=== PATIENT | female | born 1975 | race Caucasian/White ===

== ENCOUNTER 2021-05-12 19:40 | Emergency (ER) | payer SELFPAY ==
--- NOTE | 2021-05-12 19:44 | ED.BACK ---
HPI - Back Pain/Injury General Chief Complaint: Back Pain/Injury Stated Complaint: Back Pain Time Seen by Provider: 05/12/21 19:44 Source: patient and RN notes reviewed History of Present Illness HPI Narrative: Patient is a 46-year-old female who presents the urgent care with complaints of low back pain, urinary frequency, urgency, dysuria. Patient states that back pain started this morning and she is taken ibuprofen. Urinary symptoms started a few days ago. Patient does have a history of kidney stones as well as UTIs. Has not been diagnosed with a UTI in the last 3 years. Denies of any known back injury. Denies of any recent heavy pushing, pulling, lifting above the head. Denies any blood in the urine. Denies of fever, chills, nausea, vomiting. No other acute complaints. No acute distress noted. Patient read the plan of care. Some parts of this dictation were generated by voice recognition software and may contain typographical and/or grammatical inaccuracies. Related Data Allergies Allergy/AdvReac Type Severity Reaction Status Date / Time Penicillins Allergy Anaphylaxis Verified 05/12/21 19:50 Review of Systems Review of Systems: CONSTITUTIONAL: Denies fever, chills, or sweats. EYES: Denies visual changes, redness, or discharge. ENT: Denies rhinorrhea, congestion, sore throat, or otalgia. CARDIOVASCULAR: Denies chest pain, palpitations, or edema. RESPIRATORY: Denies cough or dyspnea. GASTROINTESTINAL: Denies abdominal pain, nausea, vomiting, or diarrhea. GENITOURINARY: Reports of urgency, frequency and dysuria SKIN: Denies rash or itching. MUSCULOSKELETAL: Reports of low back pain NEUROLOGIC: Denies headache, numbness, or weakness. All other systems reviewed are negative, except as documented in HPI. PMFSH Comments At the time of my signature, I reviewed and agree with the nursing past medical, surgical, social, and family history. There is no relevant family history pertinent to the patient complaint. Exam Narrative: GENERAL: This is a well-nourished, well-developed patient, in no apparent distress. HEAD: normocephalic, atraumatic. EYES: PERRL. Sclera clear/white. Vision is grossly intact. EARS: External ears normal NOSE: External nose normal with no obvious nasal discharge, nares without redness, no rhinorrhea. THROAT: Mucous membranes moist NECK: Neck supple CARDIOVASCULAR: Regular rate and rhythm without murmurs, gallops, or rubs. RESPIRATORY: Clear to auscultation. Breath sounds equal bilaterally. No wheezes, rales, or rhonchi. GASTROINTESTINAL: Abdomen soft, non-tender, nondistended. SKIN: warm, intact with no suspicious lesions or rash, good texture and turgor. NEURO: awake, alert, and oriented to person, place and time. There were no obvious focal neurologic abnormalities. EXTREMITIES: No clubbing, cyanosis, or edema. BACK: Bilateral CVA tenderness; diffuse lumbar tenderness. Bilateral positive SLE exam. Course Course Level of Care: Express Care Visit Vital Signs Vital signs: Vital Signs Temperature 96.4 F L 05/12/21 19:46 Pulse Rate 96 05/12/21 19:46 Respiratory Rate 18 05/12/21 19:46 Blood Pressure 115/78 05/12/21 19:46 Pulse Oximetry 99 05/12/21 19:46 Temperature 96.4 F L 05/12/21 19:50 Pulse Rate 96 05/12/21 19:50 Respiratory Rate 18 05/12/21 19:50 Blood Pressure 115/78 05/12/21 19:50 Pulse Oximetry 99 05/12/21 19:50 Reviewed MDM - Back Pain/Injury MDM Narrative Medical decision making narrative: Reviewed lab results with the patient. She is aware that urine analysis is not indicative of urinary tract infection. Considering your symptoms and your history of kidney stones, it is highly likely that kidney stones could be the culprit of your pain. Advised the patient to avoid any heavy lifting/pushing/pulling. May continue Tylenol as needed. Do not take ibuprofen in conjunction with the prescription Toradol. Increase your water intake and avoid sugary and
[2021-05-12 19:46] VITALS: BP 115/78; PULSE 96; RESP 18; TEMP 35.8; O2SAT 99
[2021-05-12 19:50] VITALS: BP 115/78; PULSE 96; RESP 18; TEMP 35.8; O2SAT 99
== END 2021-05-12 20:00 | disposition home or self-care (01) ==
PROVIDERS: Emergency Provider Nurse Practitioner Family
DX: R30.0 Dysuria (principal); Z87.442 Personal history of urinary calculi
CPT/HCPCS: 81003; 99213; G0463

== ENCOUNTER 2022-02-11 16:46 | Emergency (ER) | payer OTHER, SELFPAY ==
[2022-02-11 16:52] VITALS: BP 187/97; PULSE 117; RESP 16; TEMP 37.1; O2SAT 97
== END 2022-02-11 17:10 | disposition left against medical advice (07) ==
LOC: EXPBETH 16:51
PROVIDERS: Emergency Provider Nurse Practitioner
DX: Z53.21 Procedure and treatment not carried out due to patient leaving prior to being seen by health care provider (principal)
CPT/HCPCS: 99199

== ENCOUNTER 2022-08-01 17:11 | Emergency (ER) | payer OTHER, SELFPAY ==
[2022-08-01 17:18] VITALS: BP 125/68; PULSE 97; RESP 16; TEMP 36.8; O2SAT 100
--- NOTE | 2022-08-01 17:52 | ED.FEMALEGU ---
HPI - Female Genitourinary General Chief complaint: Urogenital-Female Stated complaint: bladder infection Time Seen by Provider: 08/01/22 17:52 Source: patient, RN notes reviewed and old records reviewed Mode of arrival: ambulatory Limitations: no limitations History of Present Illness HPI Narrative: 47-year-old female who presents to [facility] with complaints 2 day history burning frequency with urination reports some urgency, also some decreased output. Patient denies any back or any CVA tenderness. She reports no concerns for STD exposure denies any vaginal discharge drainage or itching. Patient denies any fevers, denies nausea, vomiting, or diarrhea Patient reports no CVA tenderness or any back pain like when she has had previous kidney stones. MD elicited complaint: dysuria, UTI and other (urgency and frequency) Pertinent past history: other (previous UTI and kidney stones) Onset (ago): day(s) (2) Severity scale (1-10): 4 Quality of pain: burning Vaginal discharge: none Related Data Allergies Allergy/AdvReac Type Severity Reaction Status Date / Time Penicillins Allergy Anaphylaxis Verified 02/11/22 17:24 Review of Systems Review of Systems: CONSTITUTIONAL: Denies fever, chills, or sweats. CARDIOVASCULAR: Denies chest pain, palpitations, or edema. RESPIRATORY: Denies cough or dyspnea. GASTROINTESTINAL: Denies abdominal pain, nausea, vomiting, or diarrhea. GENITOURINARY: Reports dysuria, frequency, urgency. Denies flank pain or hematuria, perineal discomfort burning with urination SKIN: Denies rash or itching. MUSCULOSKELETAL: Denies back pain or myalgia. Denies CVA tenderness NEUROLOGIC: Denies headache All systems reviewed & are unremarkable except as noted in HPI and below PMFSH Past Medical History Medical History (Updated 08/01/22 @ 18:00 by Tierra Faustin NP) Kidney stones Surgical History Surgical History (Updated 08/01/22 @ 17:59 by Tierra Faustin NP) History of tubal ligation Social History Social History (Updated 08/01/22 @ 18:11 by Tierra Faustin NP) Smoking packs per day: 0.5 Smoking cigarettes per day: 10.0 Smoking status: Current every day smoker Tobacco type: cigarettes Alcohol intake: never Substance use type: does not use Living arrangements: with family Gender identity (if verbalized by the patient): Female Comments At time of signature, agree with nursing past medical, surgical, social and family history. There is no relevant family history pertinent to the presenting complaint Exam Narrative: GENERAL: Well-appearing, well-nourished, and in no acute distress. HEAD: Normocephalic, atraumatic. NECK: Supple. no lymphadenopathy CHEST: Clear to auscultation. No respiratory distress.SAO2 100% on room air HEART: Regular rate and rhythm. No murmur heard. Normal peripheral pulses. ABDOMEN: Soft, nontender, nondistended, normal active bowel sounds,perineal pressure with burning urgency and frequency. No CVA tenderness EXTREMITIES: Normal range of motion. No edema. SKIN: Warm, dry, no rash. NEURO: No focal deficits. Alert and oriented x3. Course Course Emergency Course: Patient is aware of diagnosis, understands and agrees to treatment plan.? Anticipatory guidance given.? Patient agrees to follow-up as directed and is aware of reasons to seek care at the emergency department. Portions of this record may have been created with voice recognition software Level of Care: Express Care Visit Vital Signs Vital signs: Vital Signs Temperature 36.8 C 08/01/22 17:18 Pulse Rate 97 08/01/22 17:18 Respiratory Rate 16 08/01/22 17:18 Blood Pressure 125/68 08/01/22 17:18 Pulse Oximetry 100 08/01/22 17:18 Oxygen Delivery Room Air 08/01/22 17:18 Temperature 36.8 C 08/01/22 17:18 Pulse Rate 97 08/01/22 17:18 Respiratory Rate 16 08/01/22 17:18 Blood Pressure 125/68 08/01/22 17:18 Pulse Oximetry 100 08/01/22 17:18 Oxygen
== END 2022-08-01 18:07 | disposition home or self-care (01) ==
PROVIDERS: Emergency Provider Registered Nurse; PCP Nurse Practitioner Adult Health
DX: N39.0 Urinary tract infection, site not specified (principal); F17.210 Nicotine dependence, cigarettes, uncomplicated
CPT/HCPCS: 81003; 87086; 99213; G0463

== ENCOUNTER 2023-01-24 13:07 | Emergency (ER) | payer OTHER, SELFPAY ==
[2023-01-24 13:12] VITALS: BP 122/78; PULSE 103; RESP 16; TEMP 36.8; O2SAT 98
--- NOTE | 2023-01-24 13:20 | ED.URI ---
HPI - URI/Sore Throat General Chief Complaint: Upper Respiratory Infection Stated Complaint: chest congestion,cough Source: patient and RN notes reviewed History of Present Illness HPI Narrative: 47 yo F presents to urgent care with complaints of cough since yesterday. Pt also presents with a hoarse voice as well. Denies any fevers, chills, chest pain, SOB, sore throat, ear pain, congestion, N/V/D. Pt states her grandbabies have had croup for weeks now and are now on steroids. Related Data Home Medications Medication Instructions Recorded Confirmed cyanocobalamin (vitamin B-12) 500 500 mcg PO DIRECTED 01/24/23 01/24/23 mcg tablet (Vitamin B-12) Allergies Allergy/AdvReac Type Severity Reaction Status Date / Time Penicillins Allergy Anaphylaxis Verified 01/24/23 13:22 Review of Systems Review of Systems: CONSTITUTIONAL: Denies fever, chills, or sweats. EYES: Denies visual changes, redness, or discharge. ENT: hoarse voice CARDIOVASCULAR: Denies chest pain, palpitations, or edema. RESPIRATORY: cough GASTROINTESTINAL: Denies abdominal pain, nausea, vomiting, or diarrhea. GENITOURINARY: Denies dysuria or hematuria. SKIN: Denies rash or itching. MUSCULOSKELETAL: Denies back pain, joint pain, or myalgia. NEUROLOGIC: Denies headache, numbness, or weakness. Pertinent positives per HPI. [facility] Past Medical History Medical History (Updated 01/24/23 @ 13:29 by Renate Wilkes APRN) Kidney stones Surgical History Surgical History (Updated 08/01/22 @ 17:59 by Tierra Faustin NP) History of tubal ligation Social History Social History (Updated 08/01/22 @ 18:11 by Tierra Faustin NP) Smoking packs per day: 0.5 Smoking cigarettes per day: 10.0 Smoking status: Current every day smoker Tobacco type: cigarettes Alcohol intake: never Substance use type: does not use Living arrangements: with family Gender identity (if verbalized by the patient): Female Comments At the time of my signature, I reviewed and agree with the nursing past medical, surgical, social, and family history. There is no relevant family history pertinent to the patient complaint. Exam Narrative: GENERAL: This is a well-nourished, well-developed patient, in no apparent distress. HEAD: normocephalic, atraumatic. EYES: Sclera clear/white. Vision is grossly intact. EARS: External ears normal, auditory canals clear and without drainage, TMs normal without perforation. Hearing grossly intact. NOSE: External nose normal with no obvious nasal discharge, nares without redness, no rhinorrhea. THROAT: Mucous membranes moist, posterior pharynx clear. Hoarse voice. NECK: Neck supple, non-tender without lymphadenopathy, masses or thyromegaly. CARDIOVASCULAR: Regular rate and rhythm without murmurs, gallops, or rubs. RESPIRATORY: Clear to auscultation. Breath sounds equal bilaterally. No wheezes, rales, or rhonchi. GASTROINTESTINAL: Abdomen soft, non-tender, nondistended. Bowel sounds are active. No hepato-splenomegaly, or palpable masses. No guarding. SKIN: warm, intact with no suspicious lesions or rash, good texture and turgor. NEURO: awake, alert, and oriented to person, place and time. There were no obvious focal neurologic abnormalities. EXTREMITIES: No clubbing, cyanosis, or edema. No joint tenderness, effusion, or edema noted. BACK: Nontender without deformity or crepitus. No flank tenderness. Course Course Level of Care: Express Care Visit Vital Signs Vital signs: Vital Signs Temperature 98.2 F 01/24/23 13:12 Pulse Rate 103 H 01/24/23 13:12 Respiratory Rate 16 01/24/23 13:12 Blood Pressure 122/78 01/24/23 13:12 Pulse Oximetry 98 01/24/23 13:12 Oxygen Delivery Room Air 01/24/23 13:12 Temperature 98.2 F 01/24/23 13:12 Pulse Rate 103 H 01/24/23 13:12 Respiratory Rate 16 01/24/23 13:12 Blood Pressure 122/78 01/24/23 13:12 Pulse Oximetry 98 01/24/23 13:12 Oxygen Delivery
== END 2023-01-24 13:30 | disposition home or self-care (01) ==
PROVIDERS: Emergency Provider Nurse Practitioner Family; PCP Nurse Practitioner Adult Health
DX: B34.9 Viral infection, unspecified (principal); J04.0 Acute laryngitis; F17.210 Nicotine dependence, cigarettes, uncomplicated
CPT/HCPCS: 99211; G0463

== ENCOUNTER 2023-03-11 14:08 | Emergency (ER) | payer OTHER, MEDICAID, SELFPAY ==
[2023-03-11 14:25] VITALS: BP 113/80; PULSE 138; RESP 16; TEMP 36.3; O2SAT 99
--- NOTE | 2023-03-11 14:30 | ED.FEMALEGU ---
HPI - Female Genitourinary General Chief complaint: Urogenital-Female Stated complaint: Possible UTI Time Seen by Provider: 03/11/23 14:30 Source: patient Mode of arrival: ambulatory Limitations: no limitations History of Present Illness HPI Narrative: 47-year-old female presented for complaint of urinary frequency, decreased urinary output, and dark colored urine over the past 3 days. Also reports pain to both sides of abdomen. She endorses a history of renal stones, but states pain is not similar. Denies nausea, vomiting, diarrhea, fevers or chills. No meds for symptoms. Related Data Home Medications Medication Instructions Recorded Confirmed cyanocobalamin (vitamin B-12) 500 500 mcg PO DIRECTED 01/24/23 01/24/23 mcg tablet (Vitamin B-12) Allergies Allergy/AdvReac Type Severity Reaction Status Date / Time Penicillins Allergy Anaphylaxis Verified 01/24/23 13:22 Review of Systems Review of Systems: CONSTITUTIONAL: Denies body aches, fever, chills, or sweats. EYES: Denies visual changes, redness, or discharge. ENT: Denies rhinorrhea, congestion, sore throat, or otalgia. CARDIOVASCULAR: Denies chest pain, palpitations, or edema. RESPIRATORY: Denies cough or dyspnea. GASTROINTESTINAL: Denies abdominal pain, nausea, vomiting, or diarrhea. GENITOURINARY: Denies dysuria or hematuria.Reports frequency and dark urine SKIN: Denies rash, itching, or wounds. MUSCULOSKELETAL: reports low back pain, Denies joint pain, or myalgia. NEUROLOGIC: Denies headache, numbness, tingling, or weakness. All systems reviewed & are unremarkable except as noted in HPI and below PMFSH Past Medical History Medical History Kidney stones Surgical History Surgical History History of tubal ligation Social History Social History Smoking packs per day: 0.5 Smoking cigarettes per day: 10.0 Smoking status: Current every day smoker Tobacco type: cigarettes Alcohol intake: never Substance use type: does not use Living arrangements: with family Gender identity (if verbalized by the patient): Female Comments At time of signature, I have reviewed and agree with nursing past medical, surgical, social and family history unless otherwise noted. Please see nursing chart for further information. There is no relevant family history pertinent to the presenting complaint Exam Narrative: GENERAL: Well-appearing and in no acute distress. EYES: EOMI. No redness or drainage. Conjunctivae normal. ENT: Mucous membranes pink and moist. No rhinorrhea. TMs normal bilaterally. Throat normal. Uvula midline. NECK: Normal AROM. CHEST: No respiratory distress. Clear to auscultation. HEART: regular, tachycardic No murmur appreciated. Normal peripheral pulses. ABDOMEN: Soft, nondistended, normal active bowel sounds. Tender LUQ. No rebound tenderness, rigidity, or asymmetry. No CVA tenderness. EXTREMITIES: Normal range of motion. No edema. SKIN: Warm, dry, no rash. Capillary refill normal. Normal skin turgor. NEURO: No focal deficits. Alert and oriented x3. Gait steady. PSYCH: flat affect. Course Course Emergency Course: Patient is aware of diagnosis, understands and agrees to treatment plan. Anticipatory guidance given. Patient agrees to follow-up as directed and is aware of reasons to seek care at the emergency department. Portions of this record may have been created with voice recognition software Level of Care: Express Care Visit Vital Signs Vital signs: Vital Signs Temperature 97.4 F L 03/11/23 14:25 Pulse Rate 138 H 03/11/23 14:25 Respiratory Rate 16 03/11/23 14:25 Blood Pressure 113/80 03/11/23 14:25 Pulse Oximetry 99 03/11/23 14:25 Oxygen Delivery Room Air 03/11/23 14:25 Temperature 97.4 F L 03/11/23 14:25 Pulse
--- NOTE | 2023-03-11 14:49 | ECG_ITS ---
Measurements Intervals [place] Rate: 124 P: 64 AK: 96 QRS: 67 QRSD: 70 T: 61 QT: 318 QTc: 458 Interpretive Statements SINUS TACHYCARDIA WITH SHORT AK INTERVAL NONSPECIFIC ST & T-WAVE ABNORMALITY ABNORMAL RHYTHM ECG NO PREVIOUS ECG AVAILABLE FOR COMPARISON Electronically Signed On 03-12-2023 8:57:20 HAND BUFFING WHEEL FORMER by Leonel Grayson M.D.
== END 2023-03-11 15:18 | disposition short-term general hospital (02) ==
PROVIDERS: Emergency Provider Nurse Practitioner Family; PCP Nurse Practitioner Adult Health
DX: R00.0 Tachycardia, unspecified (principal); R82.998 Other abnormal findings in urine; F17.210 Nicotine dependence, cigarettes, uncomplicated
CPT/HCPCS: 81003; 87086; 87088; 93005; 99213; G0463

== ENCOUNTER 2024-07-20 11:52 | Emergency (ER) | payer OTHER, SELFPAY ==
--- OUTSIDE RECORDS SUMMARY | 2024-07-20 11:55 | XMS_ITS | Encounter Summary ---
Author Organization [facility] Address [address] [place] [address] Care Team Providers Care Oil Well Engineer Name Role Phone Demetrice Tom NP Primary Care Provider [phone] Reason for Visit * Auth/Cert (Routine) Specialty Diagnoses / Procedures Referred By Vinicio moncada Referred To Contact Diagnoses Family history of colon cancer Family history of colon cancer [Z80.0] Procedures CO COLONOSCOPY FLX DX W/COLLJ SPEC WHEN PFRMD COLONOSCOPY Referral ID Status Reason Start Date Expiration Date Visits Re quested Visits Authorized [id number] 1 1 Encounter Details Date Type Department Care Team (Late st Contact Info) Description 09/25/2023 Hospital Encounter [facility] [address] [place] [address] Constantine Puentes MD [address] [place] [address] [address] [place] [address] Social History Tobacco Use Types Packs/Day Years Used Date Smoking Tobacco: Heavy Smoker Cigarettes Smokeless Tobacco: Never Tobacco Cessation:Ready to Q uit: Not Asked; Counseling Given: Not Answered Comments:Smoking History Packs/day: 1 Packs Alcohol Use Standard Drinks/Week Comments No 0 (1 standard drink = 0.6 oz pur e alcohol) AUDIT-C Answer Date Recorded Q1: How often do you have a drink containing alcohol? Never 03/15/2023 Q2: How many drinks containi ng alcohol do you have on a typical day when you are drinking? Patient does not drink 12/20/202 3 Q3: How often do you have si x or more drinks on one occasion? Never 03/15/2023 PHQ-2 Answer Date Recorded PHQ-2 Total Score (If total score is 3 or more points, staff should administer the PHQ-9) 0 04/20/2023 Personal Safety Answer Date Recorded Have you ever been in or are you currently in a harmful physical or emotional relationship or is someone making you feel afraid or unsafe? 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 Gender Identity Not on file Sexual Orientation Not on file documented as of this encounter Plan of Treatment Not on file documented as of this encounter Visit Diagnoses Diagnosis Family history of colon cancer- Primary Family history of malignant neoplasm of gastrointestinal tract documented in this encounter Admitting Diagnoses Diagnosis Family history of colon cancer Family history of malignant neoplasm of gastrointestinal tract documented in this encounter Care Teams Oil Well Engineer Relationship Specialty Start Date End Date Demetrice Tom NP 2 [facility] [address] [place] [id number] PCP - General Family Medicine 03/15/23 documented as of this encounter
--- OUTSIDE RECORDS SUMMARY | 2024-07-20 11:55 | XMS_ITS | Encounter Summary ---
Author Organization [facility] Address [address] [place] [address] Phone Care Team Providers Care Harp Maker Name Role Phone Provider, None Primary Care Provider Robby Fields MD Unavailable [phone] Rajwinder Salazar APRN, CNP Primary Care Provider + Encounter Details Date Type Department Care Team (Late st Contact Info) Description 11/30/2022 Lab Requisition [facility] [address] [place] [address] Carlton Hamm, PAC [address] [place] [address] Encounter for pre-employment examination Social History Tobacco Use Types Packs/Day Years Used Date Smoking Tobacco: Never Smokeless Tobacco: Never Alcohol Use Standard Drinks/Week Comments Never 0 (1 standard drink = 0.6 oz pur e alcohol) Comments No Sex and Gender Information Value Date Recorded Sex Assigned at Not on file Legal Sex Female 7:58 PM CDT Gender Identity Not on file Sexual Orientation Not on file COVID-19 Exposure Response Date Recorded In the last 10 days, have yo u been in contact with someone who was confirmed or suspected to have Coronavirus/COVID-19? No / Unsure 11/30/2022 11:17 AM CDT documented as of this encounter Plan of Treatment Not on file documented as of this encounter Procedures Procedure Name Priority Date/Time Associated Diagnosis Comments QUANTIFERON-TB GOLD PLUS Routine 11/30/2022 10:55 AM CDT Encounter for pre-employment examination documented in this encounter Results * QUANTIFERON-TB GOLD PLUS (11/30/2022 10:55 AM CDT) NIL CONTROL 0.02 <8.01 IU/mL 12/02/2022 10:22 AM CDT [facility] TB ANTIGEN 1 0.09 <0.35 IU/mL 12/02/2022 10:22 AM CDT [facility] TB ANTIGEN 2 0.03 <0.35 IU/mL 12/02/2022 10:22 AM CDT [facility] MITOGEN CONTROL 9.98 >0.49 IU/mL 12/03/19 10:22 AM CDT [facility] INTEPRETATION TB NEGATIVE NEGATIVE, NEGATIVE (TB antigen response less than 25% of internal negative control value) 12/02/2022 10:22 AM CDT [facility] Comment:No immune response t o Mycobacterium tuberculosis antigens was noted. M. tuberculosis infection unlikely. Blood No Phlebotomy Charged / Unknown 11/30/2022 10:55 AM CDT 11/30/2022 12:31 PM CDT Narrative [facility] - 12/02/2022 10:22 AM CDT A POSITIVE QUANTIFERON-TB GOLD PLUS RESULT SHOULD NOT BE THE SOLE OR DEFINITIVE BASIS FOR DETERMINING INFECTION WITH M.TUBERCULOSIS. Diagnosing or excluding tuberculosis disease, and assessing the probability of LTBI, requires a combination of epidemiological, historical, medical and diagnostic findings (e.g., acid fast bacilli (AFB) smear and culture, chest xray) that should be taken into account when interpreting QFT-Plus results. Furthermore, the magnitude of the measured gamma interferon level cannot be correlated to stage or degree of infection, level of immune responsiveness, or likelihood for progression to active disease. The Nil control adjusts for background (e.g., elevated levels of circulating gamma interferon or presence of heterophile antibodies). The Mitogen control serves as an internal positive control and verifies each specimen tested can produce a gamma interferon response. Low mitogen may occur with insufficient lymphocytes, reduced lymphocyte activity due to improper specimen handling, filling/mixing of the mitogen tube, or inability of the patient's lymphocytes to generate gamma interferon. Infection with other Mycobacteria, including M. kansasii, M. szulgai, and M. marinum, may cause false positive results. A negative QuantiFERON-TB Gold Plus result does not preclude the possibility of M. tuberculosis infection or tuberculosis disease: false negative results can be due to incorrect blood sample collection/ improper handling of the specimen, stage of infection (e.g., specimen obtained prior to the development of cellular immune response), co-morbid conditions which affect immune function, or other individual immunological factors. The minimum number of lymphocytes required for a reliable test has not been established and may also be variable. Diagnostic testing for Mycobacterium tuberculosis using Interferon Gamma Release Assays should follow applicable published guidelines, including when testing in populations such as children, women, and HIV-infected or otherwise immunocompromised individuals. https://www.cdc.gov/tb/publications/guidelines/testing.htm us Carlton Hamm PAC IMMUNOLOGY ORDERABLES Final Result [facility] [address] [place] [address], documented in this encounter Visit Diagnoses Diagnosis Encounter for pre-employment examination Health examination of defined subpopulation documented in this encounter Additional Health Concerns Infection Onset Date Last Indicated Resolved Time Respiratory Rule Out - RPA 03/12/2023 03/12/2023 1 05/13/2022 1:56 AM CAKE FORMER COVID - 19 03/12/2023 03/12/2023 03/22/2023 12:1 8 AM CAKE FORMER COVID - 19 08/01/2023 08/01/2023 08/01/2023 10:1 3 AM CDT documented as of this encounter Care Teams Harp Maker Relationship Specialty Start Date End Date Provider, None [place] PCP - General 07/03/21 03/10/23 Rajwinder Salazar, MESSAGING ARCHITECT, DROP MACHINE OPERATOR [address] [place] [address] [place] [id number] PCP - General Advanced Practice Nurse 03/11/23 Robby Wakefield MD [address] [place] [address] [place] [id number] Family Medicine 07/03/21 documented as of this encounter
--- OUTSIDE RECORDS SUMMARY | 2024-07-20 11:55 | XMS_ITS | Referral Summary ---
Author Organization [facility] Address [address] [place] [id number] Care Team Providers Care Pyrometer Temperature Regulator Name Role Phone Demetrice Tom NP Primary Care Provider Allergies Active Allergy Reactions Criticality Noted Date Comments Penicillin Hives Medium Medications sodium chloride (OCEAN) 0.65 % nasal spray Administer 1 spray into each nostril 5 (five) times a day 30 mL 3 Active cyanocobalamin (Vitamin B-12) 500 mcg tabletIndicatio ns:B12 deficiency Take 2 tablets (1,000 mcg total) by mouth daily 60 tablet 11 3 Active albuterol HFA (PROVENTIL HFA,VENTOLIN HFA,PROAIR HFA) 90 mcg/actuation inhaler Inhale 2 puffs every 4 (four) hours as needed 3 Active Active Problems Problem Noted Date Diagnosed Date Family history of colon cancer 03/22/2023 Fentanyl use disorder, moderate, dependence 05/0 10/2022 Assessment & Plan (04/23/2023 8:28 AM SENIOR TREASURY CONSULTANT): Chronic problem-poorly controlled Patient states last use was one day ago-unsure of time used Discussed treatment options for detox-patient agreeable to go in to detox program today I personally called [facility] program at [facility]- unable to reach any contact to discuss, then called [facility] program and discussed patient and concerns with needing to get her into the detox program [place] today-I discussed the details with patient and she is advised to be at the [facility] ED at 1500 today for her appointment to be placed in detox at 1515.Patient informed that the registration from [facility] will be calling her to get some information prior to her check in- patient verbally agreed to be treated and to go to ED at specified time to get in to the program. We discussed patient drug use and abuse- highly recommend substance use cessation- We discussed Rx medication for withdrawal symptoms and that I could treat for this, however if she does not go to detox, then the medication will not benefit her due to high risk of using after leaving the office and the medication would not be effective. Patient advised that when she does show up for admission to the detox program, they will evaluate the severity of her withdrawal and treat accordingly- Patient left without stopping at checkout Assessment & Plan (08/01/2022 2:33 PM CDT): On 07/31, patient found in the possession of fentanyl. Urine drug screen on 08/04 positive for fentanyl. Gentle confrontation done on 08/01. Endorses active uses via snorting, but states that last use was 9 days ago . States that she uses about 1 cap every 3-4 days, but is inconsistent in history. Patient unsure if she is willing to undergo substance treatment programs. Patient reports she does not think her symptoms are related. Plan: Recommended substance use cessation. Patient left against medical advice. Cocaine use 08/01/2022 Assessment & Plan (08/01/2022 2:32 PM CDT): Urine drug screen on 07/31 positive for cocaine. Gentle confrontation done 08/01 and patient endorses once in a blue zavala snorting usage. Denies any IV drug use. Echocardiogram 08/01 was within normal limits. Recommended cessation. The patient declined substance abuse treatment and ultimately left against medical advice. Potentially contributing to the patient recurrent syncope. Plan: Recommend polysubstance use cessation. The patient left against medical advice. Hypotension 08/01/2022 Assessment & Plan (08/01/2022 2:36 PM CDT): Since admission, had borderline hypotension. The morning of 08/01, despite being on normal saline 75 cc an hour, had a blood pressure reading of SBP 80s. Received a bolus of 1 L. Reports good hydration and oral intake. Was continued on 75 cc an hour until the patient decided to leave against medical advice. Echocardiogram conducted 08/01 was within normal limits. Potentially secondary to ongoing substance abuse history. Plan: The patient left against medical advice. Was receiving NS 75 cc/hour. B12 deficiency 06/16/2022 Assessment & Plan (06/16/2022 10:26 AM CDT): Continue B12 -dose increased to 1,000 mcg daily- new Rx sent Overweight with body mass in dex (BMI) of 27 to 27.9 in adult 06/16/2022 Assessment & Plan (06/16/2022 10:28 AM CDT): Weight stable Continue healthy diet and exercise as tolerated Numbness and tingling of both lower extremities 05/03/2022 Assessment & Plan (06/16/2022 10:28 AM CDT): Stable- improved Continue to monitor for worsening-will plan EMG/NCS in the future Assessment & Plan (05/03/2022 11:22 AM SENIOR TREASURY CONSULTANT): Labs ordered to check Vitamin B12 level Plan to order EMG/NCS next visit if B12 level normal Family history of rheumatoid arthritis Assessment & Plan (05/03/2022 11:21 AM SENIOR TREASURY CONSULTANT): Labs ordered Tylenol as directed for joint discomfort Iron deficiency anemia 11/03/2015 Overview (07/02/2016): Iron deficiency anemia Assessment & Plan (06/16/2022 10:30 AM CDT): Iron stable- TIBC 227 Continue to monitor Assessment & Plan (05/03/2022 11:24 AM SENIOR TREASURY CONSULTANT): Labs ordered Healthy diet Plan to order ferrous sulfate pending lab results Gastroesophageal reflux disease 11/03/2015 Overview (07/02/2016): GERD Calculus of kidney 11/03/2015 Overview (07/02/2016): Kidney stone 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 Orthostatic vital signs ordered and positive. Lying down was 121/71 and Standing 94/67. Showing a greater than 20 systolic change. D-Dimer elevated at [address] head showed no acute intracranial findings. With history of hand numbness that resolved 1.5 years ago a differential could include multiple sclerosis, but can also be TIA/stroke. Monitored on telemetry without evidence of arrhythmias. Since admission, denied further symptoms. Subsequently found to be in possession of fentanyl. Urine drug screen positive for both cocaine and fentanyl. Echocardiogram conducted 08/01 was within normal limits. Creatinine kinase, TSH and urinalysis were within normal limits. Per Neurology, the patient was started on Keppra 500 mg b.i.d.. Blood pressures on the morning of 08/01 were borderline hypotensive, however patient asymptomatic. Reported normal hydration. Plan: The patient decided to leave against medical advice. EEG pending. Neurology was consulted. Continue Keppra 500 mg b.i.d.. Would continue to monitor blood pressures. CECILIA (acute kidney injury) 07/31/2022 Assessment & Plan (07/31/2022 10:07 AM CDT): Patient presented with a Cr of 1.36 concerning for CECILIA and placed on NS 75 cc. Reviewed on 07/31 and Cr 1.13 and improving. Encounter for annual health examination 06/16/2022 03/15/2023 Assessment & Plan (06/16/2022 10:26 AM CDT): Return to office in 1 year for annual Fasting labs prior to visit-cbc with diff,cmp, lipids, iron panel, b12, folate, vitamin d Syncope 05/03/2022 03/15/2023 Assessment & Plan (05/03/2022 11:24 AM SENIOR TREASURY CONSULTANT): Carotid dopplers ordered Patient advised not to drive until testing complete and syncope resolved Stay hydrated- drink water Stop smoking Labs ordered Nasal bones, closed fracture 05/03/2022 03/15/2023 Assessment & Plan (06/16/2022 10:27 AM CDT): Follow up with Dr. Mendoza as scheduled Assessment & Plan (05/03/2022 11:21 AM SENIOR TREASURY CONSULTANT): Follow up with ENT as scheduled Continue Tylenol as directed for discomfort Encounter to establish care with new doctor 05/03/2022 06/01/2022 Assessment & Plan (05/03/2022 11:20 AM SENIOR TREASURY CONSULTANT): Labs and imaging ordered GI consult for colo cancer screening Mammogram ordered return to clinic in 6 weeks for annual exam Dysplasia of cervix, high grade NEAL 2 09/14/2016 05/03/2022 Jensen esophagus 05/23/2016 06/01/2022 Overview (08/19/2016): Barretts esophagus Anemia 05/23/2016 05/03/2022 Overview (08/19/2016): Anemia Obesity with body mass index 30 or greater 05/23/2016 05/03/2022 Overview (08/19/2016): BMI 30+ - obesity Irritable bowel syndrome with constipation 05/23/2016 05/03/2022 Overview (08/19/2016): IBS - Irritable bowel syndrome Acute hemorrhagic cystitis 10/06/2015 0 06/01/2022 Overview (07/02/2016): Acute cystitis with hematuria Assessment & Plan (05/03/2022 11:26 AM SENIOR TREASURY CONSULTANT): Labs ordered Stay hydrated Follow up with urology prn Acute cystitis 10/06/2015 05/03/2022 Overview (07/02/2016): Acute cystitis without hematuria Immunizations Immunization Administration Dates Next Due Influenza, Quadrivalent, Spl it, Preservative Free, Intramuscular 11/28/2019 Influenza, Unspecified 04/20/2023(Deferr ed: Patient Refused),06/01/2022(Deferred: Patient Refused),10/25/2021(Deferred: Patient Refused) Tdap 09/11/2018 Social History Tobacco Use Types Packs/Day Years Used Date Smoking Tobacco: Heavy Smoker Cigarettes Smokeless Tobacco: Never Tobacco Cessation:Ready to Q uit: No; Counseling Given: Not Answered Comments:Smoking History Packs/day: 1 Packs Alcohol Use Standard Drinks/Week Comments No 0 (1 standard drink = 0.6 oz pur e alcohol) AUDIT-C Answer Date Recorded Q1: How often do you have a drink containing alcohol? Never 03/15/2023 Q2: How many drinks containi ng alcohol do you have on a typical day when you are drinking? Patient does not drink Q3: How often do you have si [...] on file Legal Sex Female 4:09 AM SENIOR TREASURY CONSULTANT Gender Identity Not on file Sexual Orientation Not on file Last Filed Vital Signs Vital Sign Reading Time Taken Comments Blood Pressure 115/89 04/20/2023 10:21 AM SENIOR TREASURY CONSULTANT Pulse 110 04/20/2023 10:21 AM SENIOR TREASURY CONSULTANT Temperature 36.3 C (97.3 F) 04/20/2023 10:21 AM SENIOR TREASURY CONSULTANT Respiratory Rate 18 04/20/2023 10:21 AM SENIOR TREASURY CONSULTANT Oxygen Saturation 98% 04/20/2023 10:21 AM SENIOR TREASURY CONSULTANT Inhaled Oxygen Concentration - - Weight 73 kg (161 lb) 04/20/2023 10:21 AM SENIOR TREASURY CONSULTANT Height 160.2 cm (5' 3.07 ) 03/15/2023 11:[address] Shoes off Body Mass Index 28.46 03/15/2023 11:19 AM SENIOR TREASURY CONSULTANT Plan of Treatment Not on file Medical Devices Implanted Type Area Ship Fastener Device Identifier Shelf Expiration Date Model / Serial / Lot Implantech Alliedsil 3x2in Nonreinforced Permanent Implantable Thk.04in - - [id number] Implanted:Qty: 1 on 05/12/2022 by Gilberto Mendoza MD at [facility] Other - see comments N/A: Nose Implantech 09/02/2026 / [id number] Insurance [facility] CHOICE PLUS [facility] Advance Directives For more information, please contact: [phone] * Full Code (Latest Code Status on File) Date Activated Date Inactivated Comments 07/31/2022 2:21 AM 08/01/2022 3:14 PM * Full Code Date Activated Date Inactivated Comments 07/31/2022 12:43 AM 07/31/2022 2:21 AM Care Teams Pyrometer Temperature Regulator Relationship Specialty Start Date End Date Demetrice Tom NP [address] [place] [address] [place] [address] PCP - General Family Medicine 03/15/23
--- OUTSIDE RECORDS SUMMARY | 2024-07-20 11:55 | XMS_ITS | Clinical Summary ---
Author Organization [facility] Address [address] [place] [address] Phone Care Team Providers Care Music Director Name Role Phone Robby Wakefield MD Unavailable [phone] Rajwinder Salazar APRN, APPEALS BOARD REFEREE Primary Care Provider + Allergies Active Allergy Reactions Criticality Noted Date Comments Penicillins Anaphylaxis High Penicillins Rash 07/03/2021 Medications cyanocobalamin (VITAMIN B-12) 1000 MCG/ML SolutionIndicat ions:100MCG QD A6HUSSL THEN MONTHLY Indications: 100MCG QD [id number] THEN MONTHLY Active Active Problems Problem Noted Date Diagnosed Date Community acquired pneumonia 03/12/2023 CECILIA (acute kidney injury) 03/12/2023 UTI (urinary tract infection) 03/12/2023 Elevated d-dimer 03/12/2023 Elevated troponin 03/12/2023 Dehydration 03/12/2023 Jensen's esophagus GERD (gastroesophageal reflux disease) IBS (irritable bowel syndrome) Gallbladder polyp Abdominal pain Overview (03/09/2015): LUQ Vitamin B12 deficiency Family History Medical History Relation Name Comments Cancer Father Breast Cancer Maternal Aunt Diabetes Other Heart Attack Other Hypertension Other Relation Name Status Comments Father Maternal Aunt Alive Other Social History Tobacco Use Types Packs/Day Years Used Date Smoking Tobacco: Every Day Cigarettes 0.5 20 Smokeless Tobacco: Never Tobacco Cessation:Ready to Q uit: Not Asked; Counseling Given: Not Answered Alcohol Use Standard Drinks/Week Comments Never 0 (1 standard drink = 0.6 oz pur e alcohol) Sexually Active Control Partners Comments Not Currently Comments No Sex and Gender Information Value Date Recorded Sex Assigned at Not on file Legal Sex Female 7:58 PM CDT Gender Identity Not on file Sexual Orientation Not on file Last Filed Vital Signs Vital Sign Reading Time Taken Comments Blood Pressure 155/95 08/01/2023 11:00 AM CDT Pulse 110 08/01/2023 11:00 AM CDT Temperature 36.8 C (98.2 F) 08/01/2023 8:42 AM CDT Respiratory Rate 16 08/01/2023 10:45 AM CDT Oxygen Saturation 99% 08/01/2023 11:00 AM CDT Inhaled Oxygen Concentration - - Weight 73.9 kg (163 lb) 08/01/2023 8:42 AM CDT Height 162.6 cm (5' 4 ) 08/01/2023 8:42 AM CDT Body Mass Index 27.98 08/01/2023 8:42 AM CDT Plan of Treatment Health Maintenance Due Date Last Done Comments Hepatitis C Virus (HCV) Screening 1975 Mammogram 1976 Hepatitis B Immunization (1 of 3 - 19+ 3-dose series) 1995 Pneumococcal Immunization Combined (1 of 2 - PCV) 1995 Discussion re Starting/Frequency of Mammograms 2016 Influenza Immunization (#1) 2023 11/28/2019 SARS-COV-2 Immunization ( season) 2023 09/09/2020, 08/19/2020 Colonoscopy 05/05/2024 05/05/2014 Colorectal Cancer Screening 05/05/2024 Respiratory Syncytial Virus (RSV) Immunization (Adult) (1 - 1-dose 75+ series) 2051 05/05/2014 DTaP/Tdap/Td Immunization Discontinued 09/11/2018 TdaP Immunization Completed 09/11/2018 Meningococcal Immunization (ACWY) Aged Out No longer eligible based on patient's age to complete this topic Rotavirus Immunization Aged Out No lo nger eligible based on patient's age to complete this topic Procedures Procedure Name Priority Date/Time Associated Diagnosis Comments COLONOSCOPY Routine 05/05/2014 from Last 3 Months or Most Recently Relevant to Health Maintenance Results * HM COLONOSCOPY (05/05/2014) Miko Gordon MD PROCEDURE/MINOR SURGICAL ORD ERABLES Final Result from Last 3 Months or Most Recently Relevant to Health Maintenance Insurance MEDICAID [employer] * Guarantor: [facility] Account Type Relation to Patient Date of Phone Billing Address Institutional Other [id number] [place] [address] Advance Directives * Full Code (Latest Code Status on File) Date Activated Date Inactivated Comments 03/12/2023 1:38 AM 03/12/2023 2:47 PM CPR-Full T reatment: FULL ARREST: Attempt Resuscitation/CPR wit intubation and mechanical ventilation. PRE-ARREST: Use entire range of life support measures to stabilize the patient. Care Teams Music Director Relationship Specialty Start Date End Date Rajwinder Salazar, CHILD CARE CENTRE MANAGER, APPEALS BOARD REFEREE [address] [place] [address] [place] [address] PCP - General Advanced Practice Nurse 03/11/23 Robby Wakefield MD [address] [place] [address] [place] [address] Family Medicine 07/03/21
--- OUTSIDE RECORDS SUMMARY | 2024-07-20 11:55 | XMS_ITS | Clinical Summary ---
Author Organization [facility] Address [address] [place] [id number] Care Team Providers Care Peer Specialist Name Role Phone Demetrice Tom NP Primary Care Provider [phone] Allergies Active Allergy Reactions Criticality Noted Date [...] 10/2022 Assessment & Plan (04/23/2023 8:28 AM PARK MAINTENANCE TECHNICIAN): Chronic problem-poorly controlled Patient states last use was one day ago-unsure of time used Discussed treatment options for detox-patient agreeable to go in to detox program today I personally called [facility] program at [facility]- unable to reach any contact to discuss, then called [facility] program and discussed patient and concerns with needing to get her into the detox program [place] today-I discussed the details with patient and she is advised to be at the [facility] ED at 1500 today for her appointment to be placed in detox at 1515.Patient informed that the registration from [facility] will be calling her to get [...] future Assessment & Plan (05/03/2022 11:22 AM PARK MAINTENANCE TECHNICIAN): Labs ordered to check Vitamin B12 level Plan to order EMG/NCS next visit if B12 level normal Family history of rheumatoid arthritis Assessment & Plan (05/03/2022 11:21 AM PARK MAINTENANCE TECHNICIAN): Labs ordered Tylenol as directed for joint discomfort Iron deficiency anemia 11/03/2015 Overview (07/02/2016): Iron deficiency anemia Assessment & Plan (06/16/2022 10:30 AM CDT): Iron stable- TIBC 227 Continue to monitor Assessment & Plan (05/03/2022 11:24 AM PARK MAINTENANCE TECHNICIAN): Labs ordered Healthy diet Plan to order [...] 03/15/2023 Assessment & Plan (05/03/2022 11:24 AM PARK MAINTENANCE TECHNICIAN): Carotid dopplers ordered Patient advised not to drive until testing complete and syncope resolved Stay hydrated- drink water Stop smoking Labs ordered Nasal bones, closed fracture 05/03/2022 03/15/2023 Assessment & Plan (06/16/2022 10:27 AM CDT): Follow up with Dr. Mendoza as scheduled Assessment & Plan (05/03/2022 11:21 AM PARK MAINTENANCE TECHNICIAN): Follow up with ENT as scheduled Continue Tylenol as directed for discomfort Encounter to establish care with new doctor 05/03/2022 06/01/2022 Assessment & Plan (05/03/2022 11:20 AM PARK MAINTENANCE TECHNICIAN): Labs and imaging ordered GI consult for colo cancer screening Mammogram ordered return to clinic in 6 weeks for annual exam Dysplasia of cervix, high grade ENAL 2 09/14/2016 05/03/2022 Jensen esophagus 05/23/2016 06/01/2022 [...] hematuria Assessment & Plan (05/03/2022 11:26 AM PARK MAINTENANCE TECHNICIAN): Labs ordered Stay hydrated Follow up with urology prn Acute cystitis 10/06/2015 05/03/2022 Overview (07/02/2016): Acute cystitis without hematuria Immunizations Immunization Administration Dates Next Due Influenza, Quadrivalent, Spl it, Preservative Free, Intramuscular 11/28/2019 Influenza, Unspecified 04/20/2023(Deferr ed: Patient Refused),06/01/2022(Deferred: Patient Refused),10/25/2021(Deferred: Patient Refused) Tdap 09/11/2018 Surgical History Surgery Date Site/Laterality Comments TUBAL LIGATION tubal ligation OTHER SURGICAL HISTORY Laparoscopic tubal ligation HYSTERECTOMY 03/27/2013 - 03/26/2014 COLONOSCOPY 4 yrs ago Medical History Medical History Date Comments Hx Other Medical IBS; Comments: [facility] 11/03/2015 - Hx Other Medical barretss esopha gabby; Comments: [facility] 11/03/2015 - Hx Other Medical hiatal hernia; Comments: [facility] 11/03/2015 - Hx Other Medical low iron; Comme nts: [facility] 11/03/2015 - Hx Other Medical vitamin b-12 di f.; Comments: [facility] 11/03/2015 - Gastroesophageal reflux disease GERD Hx Other Medical Menometrorrhagi a, pelvic pain; Comments: [facility] 08/11/2016 - Irritable bowel syndrome 05/23/2016 IBS - I rritable bowel syndrome Obesity with body mass index 30 or greater 05/23/2016 BMI 30+ - obesity Dysplasia of cervix, high grade NEAL 2 09/14/2016 Irritable bowel syndrome wit h constipation 05/23/2016 IBS - Irritable bowel syndro me Anemia 05/23/2016 Anemia Acute hemorrhagic cystitis 10/06/2015 Acute cystitis with hematuria PONV (postoperative nausea and vomiting) Motion sickness Family History Medical History Relation Name Comments Cancer Father Cancer, unknown ; Colon cancer Father's Brother Colon cancer Mother's Brother Breast cancer Mother's Sister Cancer, robbin ast; Colon cancer Mother's Sister Hypertension Other 1 Family history of Hypertension; Diabetes Other 2 Family history of Diabetes mellitus; Cancer Other 3 Family history of Cancer, unknown; Hypertension Other 4 Family history of Hypertension; RED 05/26/2016 - Maternal and paternal aunts & uncles Diabetes Other 5 Family history of Diabetes mellitus; RED 05/26/2016 - Maternal and paternal aunts & uncles Heart attack Other 6 Family history of Myocardial infarction; RED 05/26/2016 - MU and PU Anesthesia problems Neg Hx Relation Name Status Comments Father Father's Brother Mother's Brother Mother's Sister Other 1 Other 2 Other 3 Other 4 Other 5 Other 6 Social History Tobacco Use Types Packs/Day Years [...] on file Legal Sex Female 4:09 AM PARK MAINTENANCE TECHNICIAN Gender Identity Not on file Sexual Orientation Not on file Obstetrics History Last Filed Vital Signs Vital Sign Reading Time Taken Comments Blood Pressure 115/89 04/20/2023 10:21 AM PARK MAINTENANCE TECHNICIAN Pulse 110 04/20/2023 10:21 AM PARK MAINTENANCE TECHNICIAN Temperature 36.3 C (97.3 F) 04/20/2023 10:21 AM PARK MAINTENANCE TECHNICIAN Respiratory Rate 18 04/20/2023 10:21 AM PARK MAINTENANCE TECHNICIAN Oxygen Saturation 98% 04/20/2023 10:21 AM PARK MAINTENANCE TECHNICIAN Inhaled Oxygen Concentration - - Weight 73 kg (161 lb) 04/20/2023 10:21 AM PARK MAINTENANCE TECHNICIAN Height 160.2 cm (5' 3.07 ) 03/15/2023 11:[address] Shoes off Body Mass Index 28.46 03/15/2023 11:19 AM PARK MAINTENANCE TECHNICIAN Plan of Treatment Health Maintenance Due Date Last Done Comments Breast Cancer Screening-Mammogram 1976 Colon Cancer Screening-Colonoscopy 1976 Hepatitis C Screening 1976 Hepatitis B Screening 1994 Pneumococcal vaccine <65 (1 of 2 - PCV) 1995 Regular Well Visit/Exam 18-64 06/17/2023 06/16/2022 Covid-19 Vaccine (3 - 2023-2 5 season) 2023 09/09/2020, 08/19/2020 Influenza Vaccine (#1) 2023 11/28/2019 Depression Screening 04/20/2024 04/20/2023, 03/15/2023, 06/16/2022, Additional history exists DTaP/Tdap/Td Vaccine (2 - Td or Tdap) 09/11/2028 09/11/2018 Medical Devices Implanted Type Area Scenic Artist Device Identifier Shelf Expiration Date Model / Serial / Lot Implantech Alliedsil 3x2in Nonreinforced Permanent Implantable Thk.04in 23-700-40 - [id number] Implanted:Qty: 1 on 05/12/2022 by Gilberto Mendoza MD at [facility] Other - see comments N/A: Nose Implantech 09/02/2026-700-40 / / [id number] Insurance [facility] CHOICE PLUS [facility] HMO/PPO Address: [facility] [address] [place] [address] [facility] Advance Directives For more information, please contact: [phone] * Full Code (Latest Code Status on File) Date Activated Date Inactivated Comments 07/31/2022 2:21 AM 08/01/2022 3:14 PM * Full Code Date Activated Date Inactivated Comments 07/31/2022 12:43 AM 07/31/2022 2:21 AM Care Teams Peer Specialist Relationship Specialty Start Date End Date Demetrice Tom NP [address] [place] [address] PCP - General Family Medicine 03/15/23
[2024-07-20 11:58] VITALS: BP 133/78; PULSE 91; RESP 16; TEMP 36.3; O2SAT 100
[2024-07-20 12:13] LABS: EDCOVIDSCREEN Positive (Negative); EDINFLUASCREEN Negative (Negative); EDINFLUBSCREEN Negative (Negative)
--- NOTE | 2024-07-20 12:48 | ED_ITS ---
HPI - General Adult General Chief complaint: Upper Respiratory Infection Stated complaint: Cough/Sinus Problem Source: patient Mode of arrival: ambulatory Limitations: no limitations History of Present Illness HPI narrative: Patient presents for evaluation of respiratory symptoms for last 3 days. Symptoms include sinus congestion, thick yellow nasal drainage, cough and fatigue. No fever, chills, nausea, vomiting, diarrhea, shortness of breath. She was exposed to influenza a couple weeks ago. She has been taking OTC cough medication. She does smoke. Related Data Home Medications ?Medication ?Instructions ?Recorded ?Confirmed ?Last Taken ?Type cyanocobalamin (vitamin B-12) 500 500 mcg PO DIRECTED 01/24/23 01/24/23 Unknown History mcg tablet (Vitamin B-12) Allergies Allergy/AdvReac Type Severity Reaction Status Date / Time Penicillins Allergy Anaphylaxis Verified 07/20/24 12:09 Review of Systems Review of Systems: CONSTITUTIONAL: Reports fatigue. Denies fever, chills, or sweats. EYES: Denies visual changes, redness, or discharge. ENT: Reports sinus congestion and thick yellow drainage from the nares. CARDIOVASCULAR: Denies chest pain, palpitations, or edema. RESPIRATORY: Reports cough. Denies dyspnea. GASTROINTESTINAL: Denies abdominal pain, nausea, vomiting, or diarrhea. GENITOURINARY: Denies dysuria or hematuria. SKIN: Denies rash or itching. MUSCULOSKELETAL: Denies back pain, joint pain, or myalgia. NEUROLOGIC: Denies headache, numbness, dizziness, or weakness. PSYCHIATRIC: Denies anxiety or depression. [facility] Past Medical History Medical History Kidney stones Surgical History Surgical History History of tubal ligation Family History Family History Mother Family history non-contributory Social History Social History Smoking packs per day: 0.5 Smoking cigarettes per day: 10.0 Smoking status: Current every day smoker Tobacco type: cigarettes Alcohol intake: never Substance use type: does not use Living arrangements: with family Gender identity (if verbalized by the patient): Female Exam Narrative: GENERAL: Well-appearing, well-nourished, and in no acute distress. HEAD: Normocephalic, atraumatic. EYES: PERRLA and EOMI. ENT: Nares clear, no rhinorrhea or epistaxis. Mucous membranes moist. Oropharynx without tonsillar hypertrophy exudate or other lesions. Bilateral TMs pearly charlton nonbulging NECK: Supple. No adenopathy or masses. No carotid bruits or JVD CHEST: Clear to auscultation. No respiratory distress. No wheezes rales or rhonchi HEART: Regular rate and rhythm. No murmur heard. Normal peripheral pulses. ABDOMEN: Soft, nontender, nondistended, normal active bowel sounds. EXTREMITIES: Normal range of motion. No edema. SKIN: Warm, dry, no rash. NEURO: No focal deficits. Alert and oriented x3. PSYCH: Normal mood and affect. Course Course Emergency Course: This is a 49-year-old female who presented for evaluation of sick symptoms. Influenza negative. COVID positive. Discussed risks versus benefits of Paxlovid. Opted to forego therapy. She may take OTC meds for her symptoms. Recommend she stay well hydrated and get plenty of rest. She should follow-up with her primary care provider and go to the ER for worsening symptoms. Patient in agreement with plan of care. Level of Care: Express Care Visit Vital Signs Vital signs: Vital Signs Temperature 36.3 C L 07/20/24 11:58 Pulse Rate 91 07/20/24 11:58 Respiratory Rate 16 07/20/24 11:58 Blood Pressure 133/78 07/20/24 11:58 Pulse Oximetry 100 07/20/24 11:58 Oxygen Delivery Room Air 07/20/24 11:58 Temperature 36.3 C L 07/20/24 11:58 Pulse Rate 91 07/20/24 11:58 Respiratory Rate 16 07/20/24 11:58 Blood Pressure 133/78 07/20/24 11:58 Pulse Oximetry 100 07/20/24 11:58 Oxygen Delivery Room Air 07/20/24 11:58 Medical Decision Making Vital Signs Vital Signs: Vital Signs Temperature 36.3 C L 07/20/24 11:58 Pulse Rate 91 07/20/24 11:58 Respiratory Rate 16 07/20/24 11:58 Blood Pressure 133/78 07/20/24 11:58 Pulse Oximetry 100 07/20/24 11:58 Oxygen Delivery Room Air 07/20/24 11:58 Temperature 36.3 C L 07/20/24 11:58 Pulse Rate 91 07/20/24 11:58 Respiratory Rate 16 07/20/24 11:58 Blood Pressure 133/78 07/20/24 11:58 Pulse Oximetry 100 07/20/24 11:58 Oxygen Delivery Room Air 07/20/24 11:58 Lab Data Labs: Lab Results 07/20/24 Range/Units 12:10 POC Influenza A Ag Negative (Negative) POC Influenza B Ag Negative (Negative) POC SARS CoV-2 Ag Positive (Negative) Discharge Plan Discharge Clinical Impression: COVID Patient Disposition: Home Condition: Stable Instructions: Antibiotic Form, COVID-19 (Coronavirus Disease 2019) (ED) Patient Language: Puerto Rican Prescriptions: No Action cyanocobalamin (vitamin B-12) [Vitamin B-12] 500 mcg tablet 500 mcg PO DIRECTED nitrofurantoin monohyd/m-cryst [Macrobid] 100 mg capsule 100 mg PO Q12H 5 Days Qty: 10 0RF Rx Instructions: must administer with a meal/food Follow-up/Referrals: Flako Benton MD [Physician] - Stand Alone Forms: Work/School Release IP Time of Disposition: 12:38
== END 2024-07-20 12:44 | disposition home or self-care (01) ==
PROVIDERS: Emergency Provider Nurse Practitioner
DX: U07.1 COVID-19 (principal); F17.210 Nicotine dependence, cigarettes, uncomplicated
CPT/HCPCS: 87426; 87804; 99212; G0463

== ENCOUNTER 2024-08-03 13:41 | Emergency (ER) | payer OTHER, SELFPAY ==
--- OUTSIDE RECORDS SUMMARY | 2024-08-03 13:44 | XMS_ITS | Clinical Summary ---
Author Organization [facility] Address [address] [place] [id number] Care Team Providers Care Mental Health Program Specialist Name Role Phone Demetrice Tom NP [...] 10/2022 Assessment & Plan (04/23/2023 8:28 AM BUS WASHER): Chronic problem-poorly controlled Patient states last use was one day ago-unsure of time used Discussed treatment options for detox-patient agreeable to go in to detox program today I personally called Warm Handoff program at [facility]- unable to reach any contact to discuss, then called [facility] program and discussed patient and concerns with needing to get her into the detox program [place] today-I discussed the details with patient and she is advised to be at the [facility] ED at 1500 today for her appointment to be placed in detox at 1515.Patient informed that the registration from [facility] Program will be calling her to [...] future Assessment & Plan (05/03/2022 11:22 AM BUS WASHER): Labs ordered to check Vitamin B12 level Plan to order EMG/NCS next visit if B12 level normal Family history of rheumatoid arthritis Assessment & Plan (05/03/2022 11:21 AM BUS WASHER): Labs ordered Tylenol as directed for joint discomfort Iron deficiency anemia 11/03/2015 Overview (07/02/2016): Iron deficiency anemia Assessment & Plan (06/16/2022 10:30 AM CDT): Iron stable- TIBC 227 Continue to monitor Assessment & Plan (05/03/2022 11:24 AM BUS WASHER): Labs ordered Healthy diet Plan to order [...] 03/15/2023 Assessment & Plan (05/03/2022 11:24 AM BUS WASHER): Carotid dopplers ordered Patient advised not to drive until testing complete and syncope resolved Stay hydrated- drink water Stop smoking Labs ordered Nasal bones, closed fracture 05/03/2022 03/15/2023 Assessment & Plan (06/16/2022 10:27 AM CDT): Follow up with Dr. Mendoza as scheduled Assessment & Plan (05/03/2022 11:21 AM BUS WASHER): Follow up with ENT as scheduled Continue Tylenol as directed for discomfort Encounter to establish care with new doctor 05/03/2022 06/01/2022 Assessment & Plan (05/03/2022 11:20 AM BUS WASHER): Labs and imaging ordered GI consult for [...] hematuria Assessment & Plan (05/03/2022 11:26 AM BUS WASHER): Labs ordered Stay hydrated Follow up with [...] Date Comments Hx Other Medical IBS; Comments: [facility] 11/03/2015 - Hx Other Medical barretss esopha gabby; Comments: [facility] 11/03/2015 - Hx Other Medical hiatal hernia; Comments: [facility] 11/03/2015 - Hx Other Medical low iron; Comme nts: [facility] 11/03/2015 - Hx Other Medical vitamin b-12 di f.; Comments: [facility] 11/03/2015 - Gastroesophageal reflux disease GERD Hx Other Medical Menometrorrhagi a, pelvic pain; Comments: [facility] 08/11/2016 - Irritable bowel syndrome 05/23/2016 IBS [...] on file Legal Sex Female 4:09 AM BUS WASHER Gender Identity Not on file Sexual Orientation Not on file Obstetrics History Last Filed Vital Signs Vital Sign Reading Time Taken Comments Blood Pressure 115/89 04/20/2023 10:21 AM BUS WASHER Pulse 110 04/20/2023 10:21 AM BUS WASHER Temperature 36.3 C (97.3 F) 04/20/2023 10:21 AM BUS WASHER Respiratory Rate 18 04/20/2023 10:21 AM BUS WASHER Oxygen Saturation 98% 04/20/2023 10:21 AM BUS WASHER Inhaled Oxygen Concentration - - Weight 73 kg (161 lb) 04/20/2023 10:21 AM BUS WASHER Height 160.2 cm (5' 3.07 ) 03/15/2023 11:[address] Shoes off Body Mass Index 28.46 03/15/2023 11:19 AM BUS WASHER Plan of Treatment Health Maintenance Due Date [...] 09/11/2028 09/11/2018 Medical Devices Implanted Type Area Oxyacetylene Burner Device Identifier Shelf Expiration Date Model / Serial / Lot Implantech Alliedsil 3x2in Nonreinforced Permanent Implantable Thk.04in 23-700-40 - [id number] Implanted:Qty: 1 on 05/12/2022 by Gilberto Mendoza MD at [facility] Other - see comments N/A: Nose Implantech 09/02/2026-700-40 / / [id number] Insurance [facility] CHOICE PLUS [facility] Advance Directives For more information, please contact: [phone] * Full Code (Latest Code Status on File) Date Activated Date Inactivated Comments 07/31/2022 2:21 AM 08/01/2022 3:14 PM * Full Code Date Activated Date Inactivated Comments 07/31/2022 12:43 AM 07/31/2022 2:21 AM Care Teams Mental Health Program Specialist Relationship Specialty Start Date End Date Demetrice Tom NP [address] [place] [address] PCP - General Family Medicine 03/15/23
--- OUTSIDE RECORDS SUMMARY | 2024-08-03 13:44 | XMS_ITS | Referral Summary ---
Author Organization [facility] Address [address] [place] [id number] Care Team Providers Care Ux Interaction Designer Name Role Phone Demetrice Tom NP Primary [...] 10/2022 Assessment & Plan (04/23/2023 8:28 AM OIL BURNER JOURNEYMAN): Chronic problem-poorly controlled Patient states last use was one day ago-unsure of time used Discussed treatment options for detox-patient agreeable to go in to detox program today I personally called Warm Handoff program at [facility]- unable to reach any contact to discuss, then called [facility] program and discussed patient and concerns with needing to get her into the detox program [place] today-I discussed the details with patient and she is advised to be at the [facility] ED at 1500 today for her appointment to be placed in detox at 1515.Patient informed that the registration from [facility] Program will be calling her to get [...] future Assessment & Plan (05/03/2022 11:22 AM OIL BURNER JOURNEYMAN): Labs ordered to check Vitamin B12 level Plan to order EMG/NCS next visit if B12 level normal Family history of rheumatoid arthritis Assessment & Plan (05/03/2022 11:21 AM OIL BURNER JOURNEYMAN): Labs ordered Tylenol as directed for joint discomfort Iron deficiency anemia 11/03/2015 Overview (07/02/2016): Iron deficiency anemia Assessment & Plan (06/16/2022 10:30 AM CDT): Iron stable- TIBC 227 Continue to monitor Assessment & Plan (05/03/2022 11:24 AM OIL BURNER JOURNEYMAN): Labs ordered Healthy diet Plan to order [...] 03/15/2023 Assessment & Plan (05/03/2022 11:24 AM OIL BURNER JOURNEYMAN): Carotid dopplers ordered Patient advised not to drive until testing complete and syncope resolved Stay hydrated- drink water Stop smoking Labs ordered Nasal bones, closed fracture 05/03/2022 03/15/2023 Assessment & Plan (06/16/2022 10:27 AM CDT): Follow up with Dr. Mendoza as scheduled Assessment & Plan (05/03/2022 11:21 AM OIL BURNER JOURNEYMAN): Follow up with ENT as scheduled Continue Tylenol as directed for discomfort Encounter to establish care with new doctor 05/03/2022 06/01/2022 Assessment & Plan (05/03/2022 11:20 AM OIL BURNER JOURNEYMAN): Labs and imaging ordered GI consult for [...] hematuria Assessment & Plan (05/03/2022 11:26 AM OIL BURNER JOURNEYMAN): Labs ordered Stay hydrated Follow up with [...] on file Legal Sex Female 4:09 AM OIL BURNER JOURNEYMAN Gender Identity Not on file Sexual Orientation Not on file Last Filed Vital Signs Vital Sign Reading Time Taken Comments Blood Pressure 115/89 04/20/2023 10:21 AM OIL BURNER JOURNEYMAN Pulse 110 04/20/2023 10:21 AM OIL BURNER JOURNEYMAN Temperature 36.3 C (97.3 F) 04/20/2023 10:21 AM OIL BURNER JOURNEYMAN Respiratory Rate 18 04/20/2023 10:21 AM OIL BURNER JOURNEYMAN Oxygen Saturation 98% 04/20/2023 10:21 AM OIL BURNER JOURNEYMAN Inhaled Oxygen Concentration - - Weight 73 kg (161 lb) 04/20/2023 10:21 AM OIL BURNER JOURNEYMAN Height 160.2 cm (5' 3.07 ) 03/15/2023 11:[address] Shoes off Body Mass Index 28.46 03/15/2023 11:19 AM OIL BURNER JOURNEYMAN Plan of Treatment Not on file Medical Devices Implanted Type Area Mining Detail Draftsperson Device Identifier Shelf Expiration Date Model / Serial / Lot Implantech Alliedsil 3x2in Nonreinforced Permanent Implantable Thk.04in - - [id number] Implanted:Qty: 1 on 05/12/2022 by Gilberto Mendoza MD at [facility] Other - see comments N/A: Nose Implantech 09/02/2026 / [id number] Insurance [facility] CHOICE PLUS [facility] Advance Directives For more information, please contact: [phone] * Full Code (Latest Code Status on File) Date Activated Date Inactivated Comments 07/31/2022 2:21 AM 08/01/2022 3:14 PM * Full Code Date Activated Date Inactivated Comments 07/31/2022 12:43 AM 07/31/2022 2:21 AM Care Teams Ux Interaction Designer Relationship Specialty Start Date End Date Demetrice Tom NP [address] [place] [address] [place] [address] PCP - General Family Medicine 03/15/23
--- OUTSIDE RECORDS SUMMARY | 2024-08-03 13:44 | XMS_ITS | Encounter Summary ---
Author Organization [facility] Healthcare Address [address] [place] [address] Care Team Providers Care Senior Chemical Engineer Name Role Phone Demetrice Tom NP Primary Care Provider [phone] Reason for Visit * Auth/Cert (Routine) Specialty Diagnoses / Procedures Referred By Vinicio moncada Referred To Contact Diagnoses Family history of colon cancer Family history of colon cancer [Z80.0] Procedures MO COLONOSCOPY FLX DX W/COLLJ SPEC WHEN PFRMD COLONOSCOPY Referral ID Status Reason Start Date Expiration Date Visits Re quested Visits Authorized [id number] 1 1 Encounter Details Date Type Department Care Team (Late st Contact Info) Description 09/25/2023 Hospital Encounter [facility] [address] [place] [address] Constantine Puentes MD [address] [place] [address] [address] [place] [address] Social History Tobacco Use Types Packs/Day Years [...] on file Legal Sex Female 4:09 AM MSWS Gender Identity Not on file Sexual Orientation [...] tract documented in this encounter Care Teams Senior Chemical Engineer Relationship Specialty Start Date End Date Demetrice Tom NP [address] [facility] [address] [place] [id number] PCP - General Family Medicine 03/15/23 documented as of this encounter
--- OUTSIDE RECORDS SUMMARY | 2024-08-03 13:44 | XMS_ITS | Clinical Summary ---
Author Organization [facility] Address [address] [place] [address] Phone Care Team Providers Care Concrete Vault Maker Name Role Phone Robby Wakefield MD Unavailable [phone] Rajwinder Salazar APRN, TELECOM ENGINEER Primary Care Provider + Allergies Active Allergy Reactions Criticality Noted Date Comments Penicillins Anaphylaxis High Penicillins Rash 07/03/2021 Medications cyanocobalamin (VITAMIN B-12) 1000 MCG/ML SolutionIndicat ions:100MCG QD [id number] THEN MONTHLY Indications: 100MCG QD [id number] THEN MONTHLY Active Active Problems Problem Noted [...] Address Institutional Other [address] [place] [address] Advance Directives * Full Code (Latest Code Status on File) Date Activated Date Inactivated Comments 03/12/2023 1:38 AM 03/12/2023 2:47 PM CPR-Full T reatment: FULL ARREST: Attempt Resuscitation/CPR wit intubation and mechanical ventilation. PRE-ARREST: Use entire range of life support measures to stabilize the patient. Care Teams Concrete Vault Maker Relationship Specialty Start Date End Date Rajwinder Salazar, CYCLE ANALYST, TELECOM ENGINEER [address] [place] [address] [address] [address] PCP - General Advanced Practice Nurse 03/11/23 Robby Wakefield MD [address] [place] [address] [address] [place] [address] Family Medicine 07/03/21
--- OUTSIDE RECORDS SUMMARY | 2024-08-03 13:44 | XMS_ITS | Encounter Summary ---
Author Organization [facility] Address [address] [place] [address] Phone Care Team Providers Care Active Directory Architect Name Role Phone Provider, None Primary Care Provider Robby Fields MD Unavailable [phone] Rawjinder Salazar APRN, CNP Primary Care Provider + Encounter Details Date Type Department Care Team (Late st Contact Info) Description 11/30/2022 Lab Requisition [facility] [address] [place] [address] Carlton Hamm, PAC [address] [place] [address] Encounter for pre-employment examination Social [...] 0.02 <8.01 IU/mL 12/02/2022 10:22 AM CDT [facility] TB ANTIGEN 1 0.09 <0.35 IU/mL 12/02/2022 10:22 AM CDT [facility] TB ANTIGEN 2 0.03 <0.35 IU/mL 12/02/2022 10:22 AM CDT [facility] MITOGEN CONTROL 9.98 >0.49 IU/mL 12/03/19 10:22 AM CDT [facility] INTEPRETATION TB NEGATIVE NEGATIVE, NEGATIVE (TB antigen response less than 25% of internal negative control value) 12/02/2022 10:22 AM CDT [facility] Comment:No immune response t o Mycobacterium tuberculosis antigens was noted. M. tuberculosis infection unlikely. Blood No Phlebotomy Charged / Unknown 11/30/2022 10:55 AM CDT 11/30/2022 12:31 PM CDT Narrative [facility] - 12/02/2022 10:22 AM CDT A POSITIVE [...] Carlton Hamm PAC IMMUNOLOGY ORDERABLES Final Result [facility] [address] [place] [address], documented in this encounter Visit Diagnoses Diagnosis Encounter for pre-employment examination Health examination of defined subpopulation documented in this encounter Additional Health Concerns Infection Onset Date Last Indicated Resolved Time Respiratory Rule Out - RPA 03/12/2023 03/12/2023 1 05/13/2022 1:56 AM RAILROAD COOK COVID - 19 03/12/2023 03/12/2023 03/22/2023 12:1 8 AM RAILROAD COOK COVID - 19 08/01/2023 08/01/2023 08/01/2023 10:1 3 AM CDT documented as of this encounter Care Teams Active Directory Architect Relationship Specialty Start Date End Date Provider, None [place] PCP - General 07/03/21 03/10/23 Rajwinder Salazar, SITE LEADER, PSYCHIATRIC TECHNICIAN [address] [place] [address] [address] [place] [address] PCP - General Advanced Practice Nurse 03/11/23 Robby Wakefield MD [address] [place] [address] [address] [place] [address] Family Medicine 07/03/21 documented as of this encounter
--- NOTE | 2024-08-03 13:48 | ED.URI ---
HPI - URI/Sore Throat General Chief Complaint: Urogenital-Female Stated Complaint: urinary issue, gets out of breath when walking Time Seen by Provider: 08/03/24 13:51 Source: patient and RN notes reviewed Mode of arrival: ambulatory Limitations: no limitations History of Present Illness HPI Narrative: 49 year old female presents with concern for dysuria, frequency, and urgency. She also feels winded after activity. She denies fever, body aches, chills, sweats. She denies cough, wheezing. Denies runny nose, stuffy nose, sore throat. She had COVID 2 weeks ago. She had COVID 2 weeks ago MD elicited complaint: other (dysuria) Related Data Home Medications ?Medication ?Instructions ?Recorded ?Confirmed ?Last Taken ?Type omeprazole 08/03/24 Unknown History Allergies Allergy/AdvReac Type Severity Reaction Status Date / Time Penicillins Allergy Intermediate Anaphylaxis Verified 08/03/24 13:53 Review of Systems Review of Systems: CONSTITUTIONAL: Denies malaise, chills, sweats, or fever. EYES: Denies visual changes, redness, or discharge. ENT: Denies rhinorrhea, congestion, sinus pain, otalgia and sore throat. CARDIOVASCULAR: Denies chest pain, palpitations, or edema. RESPIRATORY: Denies cough. Denies dyspnea. Reports feeling winded with activity GASTROINTESTINAL: Denies abdominal pain, nausea, vomiting, diarrhea : Reports dysuria, frequency, urgency SKIN: Denies rash or itching. MUSCULOSKELETAL: Denies back pain, myalgia. NEUROLOGIC: Denies headache. All systems reviewed & are unremarkable except as noted in HPI and below PMFSH Past Medical History Medical History Kidney stones Surgical History Surgical History History of tubal ligation Family History Family History Mother Family history non-contributory Social History Social History Smoking packs per day: 0.5 Smoking cigarettes per day: 10.0 Smoking status: Current every day smoker Tobacco type: cigarettes Alcohol intake: never Substance use type: does not use Living arrangements: with family Gender identity (if verbalized by the patient): Female Comments At time of signature, agree with nursing past medical, surgical, social and family history. There is no relevant family history pertinent to the presenting complaint Exam Narrative: GENERAL: Well-appearing, well-nourished, and in no acute distress. HEAD: Normocephalic EYES: PERRLA, conjunctivae clear ENT: Nares clear. Mucous membranes moist. TM pearly charlton with sharp light reflex bilaterally; no tragal tenderness. Oropharynx not erythematous without lesions. Tonsils not enlarged and without exudate, no drooling, no hoarseness, no trismus, uvula midline. NECK: Supple. No lymphadenopathy CHEST: Clear to auscultation, breath sounds equal. No wheezing, rhonchi, rales, or stridor. No respiratory distress, speaks in full sentences. HEART: Regular rate and rhythm. No murmur heard. ABD: No abdominal tenderness. No CVA tenderness SKIN: Warm, dry, no rash. NEURO: Alert and oriented x3. PSYCH: Normal mood and affect Course Course Emergency Course: Patient is aware of diagnosis, understands and agrees to treatment plan. Anticipatory guidance given. Patient agrees to follow-up as directed and is aware of reasons to seek care at the emergency department. Portions of this record may have been created with voice recognition software Level of Care: Express Care Visit Vital Signs Vital signs: Reviewed. MDM - URI/Sore Throat MDM Narrative Medical decision making narrative: Differential diagnosis considered: Richardson virus, strep pharyngitis, allergic rhinitis, upper respiratory tract infection, sinusitis, rhinosinusitis, nasopharyngitis. viral pharyngitis, otitis media, otitis externa, pneumonia, bronchitis, viral cough syndrome, viral syndrome, and influenza. Exam findings show no acute concerns or changes; patient is non-toxic appearing and is in no distress. Patient is appropriate for outpatient treatment and follow-up. Lab Data Attestation: I reviewed the patient's lab results. Critical Care Time Critical Care Time Critical Care Time: No Discharge Plan Discharge Clinical Impression: Urinary tract infection Patient Disposition: Home Condition: Stable Instructions: Antibiotic Form, Urinary Tract Infection in Women (ED) Additional Instructions: We will send a urine culture to the lab; if the culture identifies an organism that the prescribed antibiotic will not treat, you will receive a phone call from an urgent care staff member and an appropriate antibiotic will be prescribed. -Your symptoms should begin to improve within a day of starting antibiotics. But you should finish all the antibiotic pills you get. Otherwise your infection might come back. -Also recommend: increase water intake. Tylenol/ibuprofen as needed for pain or fever -Follow-up with your primary care provider for urine recheck or seek ER visit if condition worsens with high fever, nausea, vomiting and severe back pain. If you have any worsening symptoms, year feeling of shortness of breath continues after several days on the antibiotic you should follow-up with your doctor or be re-evaluated. If you have any urgent concerns you should go to the emergency room. Patient Language: Macedonian Prescriptions: New levofloxacin 750 mg tablet 750 mg PO DAILY 7 Days Qty: 7 0RF No Action omeprazole Follow-up/Referrals: PHYSICIAN NOT ON STAFF,NONSTAFF [Primary Care Provider] - Stand Alone Forms: Work/School Release IP Time of Disposition: 14:05
[2024-08-03 13:49] VITALS: BP 122/84; PULSE 90; RESP 18; TEMP 36.6; O2SAT 100
[2024-08-03 14:00] LABS: EDUAAPPEAR Cloudy; EDUABILI Negative (Negative); EDUABLOOD 2+ (Negative); EDUACOLOR1 Yellow; EDUAGLUCOSE Negative (Negative); EDUAKETONE Negative (Negative); EDUALEUKO 2+ (Negative); EDUANITRATE Negative (Negative); EDUAPROTEIN 2+ (Negative); EDUASPGRAVITY 1.025; EDUAUROBILI 0.2
== END 2024-08-03 14:14 | disposition home or self-care (01) ==
PROVIDERS: Emergency Provider Nurse Practitioner
DX: N39.0 Urinary tract infection, site not specified (principal); F17.210 Nicotine dependence, cigarettes, uncomplicated; Z86.16 Personal history of COVID-19
CPT/HCPCS: 81003; 87086; 87186; 99213; G0463

== ENCOUNTER 2025-03-01 16:40 | Emergency (ER) | payer OTHER, SELFPAY ==
[2025-03-01 16:44] VITALS: BP 120/66; PULSE 102; RESP 16; TEMP 36.4; O2SAT 98
--- OUTSIDE RECORDS SUMMARY | 2025-03-01 16:46 | XMS_ITS | Clinical Summary ---
Author Organization [facility] Address [address] [place] [address] Phone Care Team Providers Care Cupola Tender Helper Name Role Phone Robby Wakefield MD Unavailable [phone] Rajwinder Salazar APRN, CABLE TOOL DRILLER Primary Care Provider + Allergies Active Allergy Reactions Criticality Noted Date Comments Penicillins Anaphylaxis High Penicillins Rash 07/03/2021 Medications cyanocobalamin (VITAMIN B-12) 1000 MCG/ML SolutionIndicat ions:100MCG QD [id number] THEN MONTHLY Indications: 100MCG QD [id number] THEN MONTHLY Active Active Problems Problem Noted [...] 8:42 AM CDT Height 162.6 cm (5' 4) 08/01/2023 8:42 AM CDT Body Mass Index 27.98 08/01/2023 8:42 AM CDT Plan of Treatment Health Maintenance Due Date Last Done Comments Hepatitis C Virus (HCV) Screening 1976 Mammogram 1976 Hepatitis B Immunization (1 of 3 - 19+ 3-dose series) 1995 Pneumococcal Immunization Combined (1 of 2 - PCV) 1995 Discussion re Starting/Frequency of Mammograms 2016 Cologuard 2021 Immunochemical Fecal Occult Blood 2021 Colonoscopy 05/05/2024 05/05/2014 Colorectal Cancer Screening 05/05/2024 Influenza Immunization (#1) 2024 11/28/2019 SARS-COV-2 Immunization (3 - 2024- season) 2024 09/09/2020, 08/19/2020 Respiratory Syncytial Virus (RSV) Immunization (Adult) (1 - 1-dose 75+ series) 2051 DTaP/Tdap/Td Immunization Discontinued 09/11/2018 TdaP Immunization Completed 09/11/2018 Human Papillomavirus (HPV) Immunization Aged Out No longer eligible based on patient's age to complete this topic Meningococcal Immunization (ACWY) Aged Out No longer eligible based on patient's age to complete this topic Rotavirus Immunization Aged Out No lo nger eligible based on patient's age to complete this topic Procedures Procedure Name Priority Date/Time Associated Diagnosis Comments COLONOSCOPY Routine 05/05/2014 from Last 3 Months or Most Recently Relevant to Health Maintenance Results * COLONOSCOPY (05/05/2014) Miko Gordon MD PROCEDURE/MINOR SURGICAL ORD ERABLES Final Result from Last 3 Months or Most Recently Relevant to Health Maintenance Insurance MEDICAID [facility] * Guarantor: [facility] Account Type Relation to Patient Date of Phone Billing Address Institutional Other [address] [place] [address] Advance Directives * Full Code (Latest Code Status on File) Date Activated Date Inactivated Comments 03/12/2023 1:38 AM 03/12/2023 2:47 PM CPR-Full T reatment: FULL ARREST: Attempt Resuscitation/CPR wit intubation and mechanical ventilation. PRE-ARREST: Use entire range of life support measures to stabilize the patient. Care Teams Cupola Tender Helper Relationship Specialty Start Date End Date Rajwinder Salazar APRN, FAN [address] [place] [address] PCP - General Advanced Practice Nurse 03/11/23 Robby Wakefield MD [address] [place] [address] Family Medicine 07/03/21
--- OUTSIDE RECORDS SUMMARY | 2025-03-01 16:46 | XMS_ITS | Clinical Summary ---
Author Organization [facility] Address [address] [place] [id number] Care Team Providers Care Mechanical Developer Prover Name Role Phone Demetrice Tom NP Primary [...] Active Problems Problem Noted Date Diagnosed Date Opioid overdose, accidental or unintentional, initial encounter 09/01/2024 Family history of colon cancer 03/22/2023 Fentanyl use disorder, moderate, dependence /10/2022 Assessment & Plan (04/23/2023 8:28 AM HIV/AIDS CARE NURSE): Chronic problem-poorly controlled Patient states last use was one day ago-unsure of time used Discussed treatment options for detox-patient agreeable to go in to detox program today I personally called [facility] program at [facility]- unable to reach any contact to discuss, then called [facility] and discussed patient and concerns with needing to get her into the detox program [place] today-I discussed the details with patient and she is advised to be at the [facility] ED at 1500 today for her appointment to be placed in detox at 1515.Patient informed that the registration from [facility] will be calling her to get some [...] states that last use was 9 days ago. States that she uses about 1 cap [...] future Assessment & Plan (05/03/2022 11:22 AM HIV/AIDS CARE NURSE): Labs ordered to check Vitamin B12 level Plan to order EMG/NCS next visit if B12 level normal Family history of rheumatoid arthritis Assessment & Plan (05/03/2022 11:21 AM HIV/AIDS CARE NURSE): Labs ordered Tylenol as directed for joint discomfort Iron deficiency anemia 11/03/2015 Overview (07/02/2016): Iron deficiency anemia Assessment & Plan (06/16/2022 10:30 AM CDT): Iron stable- TIBC 227 Continue to monitor Assessment & Plan (05/03/2022 11:24 AM HIV/AIDS CARE NURSE): Labs ordered Healthy diet Plan to order ferrous sulfate pending lab results Gastroesophageal reflux disease 11/03/2015 Overview (07/02/2016): GERD Calculus of kidney 11/03/2015 Overview (07/02/2016): Kidney stone Jensen's esophagus 11/03/2015 Overview (07/02/2016): Barretts esophagus Cervical radiculopathy Resolved Problems Problem Noted Date Diagnosed Date Resolved Date Syncope and collapse 07/31/2022 Assessment & Plan (08/01/2022 2:51 PM CDT): [...] 03/15/2023 Assessment & Plan (05/03/2022 11:24 AM HIV/AIDS CARE NURSE): Carotid dopplers ordered Patient advised not to drive until testing complete and syncope resolved Stay hydrated- drink water Stop smoking Labs ordered Nasal bones, closed fracture 05/03/2022 03/15/2023 Assessment & Plan (06/16/2022 10:27 AM CDT): Follow up with Dr. Mendoza as scheduled Assessment & Plan (05/03/2022 11:21 AM HIV/AIDS CARE NURSE): Follow up with ENT as scheduled Continue Tylenol as directed for discomfort Encounter to establish care with new doctor 05/03/2022 06/01/2022 Assessment & Plan (05/03/2022 11:20 AM HIV/AIDS CARE NURSE): Labs and imaging ordered GI consult for [...] hematuria Assessment & Plan (05/03/2022 11:26 AM HIV/AIDS CARE NURSE): Labs ordered Stay hydrated Follow up with [...] Other Medical Menometrorrhagi a, pelvic pain; Comments: SUZANNA 08/11/2016 - Irritable bowel syndrome 05/23/2016 IBS [...] making you feel afraid or unsafe? Denies 09/01/2024 Comments No Sex and Gender Information Value Date Recorded Sex Assigned at Not on file Legal Sex Female 4:09 AM HIV/AIDS CARE NURSE Gender Identity Not on file Sexual Orientation Not on file Last Filed Vital Signs Vital Sign Reading Time Taken Comments Blood Pressure 167/112 09/02/2024 1:20 AM CDT Pulse 95 09/02/2024 1:20 AM CDT Temperature 36.7 C (98.1 F) 09/02/2024 1:10 AM CDT Respiratory Rate 18 09/02/2024 1:20 AM CDT Oxygen Saturation 98% 09/02/2024 1:20 AM CDT Inhaled Oxygen Concentration - - Weight 66.2 kg (145 lb 15.1 oz) 09/02/2024 1:06 AM CDT Height 160 cm (5' 3) 09/02/2024 1:06 AM CDT Body Mass Index 25.85 09/02/2024 1:06 AM CDT Plan of Treatment Health Maintenance Due Date Last Done Comments Breast Cancer Screening-Mammogram 1976 Colon Cancer Screening-Colonoscopy 1976 Hepatitis C Screening 1976 Hepatitis B Screening 1994 Pneumococcal vaccine <65 (1 of 2 - PCV) 1995 Regular Well Visit/Exam 18-64 06/17/2023 06/16/2022 Depression Screening 04/20/2024 04/20/2023, 03/15/2023, 06/16/2022, Additional history exists Covid-19 Vaccine (3 - 2024-2 6 season) 2024 09/09/2020, 08/19/2020 Influenza Vaccine (#1) 2024 11/28/2019 DTaP/Tdap/Td Vaccine (2 - Td or Tdap) 09/11/2028 09/11/2018 Medical Devices Implanted Type Area Cafeteria Clerk Device Identifier Shelf Expiration Date Model / Serial / Lot Implantech Alliedsil 3x2in Nonreinforced Permanent Implantable Thk.04in 23-700-40 - [id number] Implanted:Qty: 1 on 05/12/2022 by Gilberto Mendoza MD at [facility] Other - see comments N/A: Nose Implantech 09/02/2026 23-700-40 / / [id number] Insurance [facility] H[facility]/PPO Address: [facility] [address] [place] [address] [facility] Advance Directives For more information, please contact: [phone] * Full Code (Latest Code Status on File) Date Activated Date Inactivated Comments 09/02/2024 1:08 AM 09/02/2024 2:23 PM * Full Code Date Activated Date Inactivated Comments 09/01/2024 10:49 PM 09/02/2024 1:08 AM * Full Code Date Activated Date Inactivated Comments 07/31/2022 2:21 AM 08/01/2022 3:14 PM * Full Code Date Activated Date Inactivated Comments 07/31/2022 12:43 AM 07/31/2022 2:21 AM Care Teams Mechanical Developer Prover Relationship Specialty Start Date End Date Demetrice Tom NP [address] [place] [address] [place] [id number] PCP - General Family Medicine 03/15/23
--- OUTSIDE RECORDS SUMMARY | 2025-03-01 16:46 | XMS_ITS | Encounter Summary ---
Author Organization [facility] Address [address] [place] [address] Phone Care Team Providers Care Data Entry Assistant Name Role Phone Provider, None Primary Care Provider Robby Fields MD Unavailable [phone] Rajwinder Salazar APRN, FAN Primary Care Provider + Encounter Details Date Type Department Care Team (Late st Contact Info) Description 11/30/2022 Lab Requisition [facility] [address] [place] [address] Carlton Hamm, PAC [address] [place] [address] Encounter for pre-employment examination Social [...] 0.02 <8.01 IU/mL 12/02/2022 10:22 AM CDT [facility] TB ANTIGEN 1 0.09 <0.35 IU/mL 12/02/2022 10:22 AM CDT [facility] TB ANTIGEN 2 0.03 <0.35 IU/mL 12/02/2022 10:22 AM CDT [facility] MITOGEN CONTROL 9.98 >0.49 IU/mL 12/03/19 10:22 AM CDT [facility] INTEPRETATION TB NEGATIVE NEGATIVE, NEGATIVE (TB antigen response less than 25% of internal negative control value) 12/02/2022 10:22 AM CDT [facility] Comment:No immune response t o Mycobacterium tuberculosis antigens was noted. M. tuberculosis infection unlikely. Blood No Phlebotomy Charged / Unknown 11/30/2022 10:55 AM CDT 11/30/2022 12:31 PM CDT Narrative [facility] - 12/02/2022 10:22 AM CDT A [...] otherwise immunocompromised individuals. https://www.cdc.gov/tb/publications/guidelines/testing.htm us Carlton Hamm [facility] ORDERABLES Final Result [facility] [address] [place] [address], documented in this encounter Visit Diagnoses Diagnosis Encounter for pre-employment examination Health examination of defined subpopulation documented in this encounter Additional Health Concerns Infection Onset Date Last Indicated Resolved Time Respiratory Rule Out - RPA 03/12/2023 03/12/2023 1 05/13/2022 1:56 AM CABINETMAKER SUPERVISOR COVID - 19 03/12/2023 03/12/2023 03/22/2023 12:1 8 AM CABINETMAKER SUPERVISOR COVID - 19 08/01/2023 08/01/2023 08/01/2023 10:1 3 AM CDT documented as of this encounter Care Teams Data Entry Assistant Relationship Specialty Start Date End Date Provider, None [place] PCP - General 07/03/21 03/10/23 Rajwidner Salazar, TOP HAT BODY MAKER, MARGIN TRIMMER [address] [place] [address] PCP - General Advanced Practice Nurse 03/11/23 Robby Wakefield MD [address] [place] [address] Family Medicine 07/03/21 documented as of this encounter
[2025-03-01 17:00] LABS: EDUAAPPEAR Clear; EDUABILI Negative (Negative); EDUABLOOD Trace (Negative); EDUACOLOR1 Yellow; EDUAGLUCOSE Negative (Negative); EDUAKETONE Negative (Negative); EDUALEUKO 1+ (Negative); EDUANITRATE Positive (Negative); EDUAPH 6.0; EDUAPROTEIN 1+ (Negative); EDUASPGRAVITY 1.025; EDUAUROBILI 0.2
--- NOTE | 2025-03-01 17:00 | ED.FEMALEGU ---
HPI - Female Genitourinary General Chief complaint: Urogenital-Female Stated complaint: Urinary Problem Time Seen by Provider: 03/01/25 17:00 Source: patient Mode of arrival: ambulatory Limitations: no limitations History of Present Illness HPI Narrative: 49-year-old female presents with complaint of urinary frequency, urgency, dysuria, low back pain for 3 days. Taking [id number] Pyridium to treat symptoms. Denies nausea vomiting, fever. All systems reviewed and negative except as noted above. Related Data Home Medications ?Medication ?Instructions ?Recorded ?Confirmed ?Last Taken ?Type omeprazole 08/03/24 Unknown History Allergies Allergy/AdvReac Type Severity Reaction Status Date / Time Penicillins Allergy Intermediate Anaphylaxis Verified 03/01/25 16:52 COUNTS INCLUDE 234 BEDS AT THE [facility] Past Medical History Medical History Kidney stones Surgical History Surgical History History of tubal ligation Family History Family History Mother Family history non-contributory Social History Social History Smoking packs per day: 0.5 Smoking cigarettes per day: 10.0 Smoking status: Current every day smoker Tobacco type: cigarettes Alcohol intake: never Substance use type: does not use Living arrangements: with family Gender identity (if verbalized by the patient): Female Comments At time of signature, agree with nursing past medical, surgical, social and family history. There is no relevant family history pertinent to the presenting complaint. Exam Narrative: GENERAL: This is a well-nourished, well-developed patient, in no apparent distress. HEAD: normocephalic, atraumatic. EYES: PERRL. Sclera clear/white. Vision is grossly intact. EARS: External ears normal NOSE: External nose normal NECK: Neck supple, non-tender without lymphadenopathy, masses or thyromegaly. CARDIOVASCULAR: Regular rate and rhythm without murmurs, gallops, or rubs. RESPIRATORY: Clear to auscultation. Breath sounds equal bilaterally. No wheezes, rales, or rhonchi. SKIN: warm, Dry, intact with no suspicious lesions or rash, good texture and turgor. NEURO: awake, alert, and oriented to person, place and time. There were no obvious focal neurologic abnormalities. EXTREMITIES: No joint tenderness, effusion, or edema noted. Course Course Level of Care: Express Care Visit Vital Signs Vital signs: Vital Signs Temperature 36.4 C 03/01/25 16:44 Pulse Rate 102 H 03/01/25 16:44 Respiratory Rate 16 03/01/25 16:44 Blood Pressure 120/66 03/01/25 16:44 Pulse Oximetry 98 03/01/25 16:44 Oxygen Delivery Room Air 03/01/25 16:44 Temperature 36.4 C 03/01/25 16:44 Pulse Rate 102 H 03/01/25 16:44 Respiratory Rate 16 03/01/25 16:44 Blood Pressure 120/66 03/01/25 16:44 Pulse Oximetry 98 03/01/25 16:44 Oxygen Delivery Room Air 03/01/25 16:44 Reviewed MDM MDM Narrative Medical decision making narrative: urinalysis positive for leukocytes, nitrites. Will treat with Bactrim. Patient is well-appearing, nontoxic. Differential Diagnosis Differential Diagnosis: Differential diagnostic considerations for female urogenital? issues include urinary tract infection, bacterial vaginosis, cervicitis, ovarian cyst, vaginitis, STI exposure, ovarian torsion, ectopic , cyst of Bartholin?s gland, cystitis, dysmenorrhea.?? Lab Data Labs: Lab Results 03/01/25 Range/Units 16:57 POC Urine Color Pending POC Urine Clarity Pending POC Urine pH Pending POC Ur Specif [place] Pending POC Urine Protein Pending POC Ur Glucose (UA) Pending POC Urine Ketones Pending POC Urine Blood Pending POC Urine Nitrite Pending POC Urine Bilirubin Pending POC Urine Urobilinogen Pending POC U Leukocyte Esteras Pending Discharge Plan Discharge Clinical Impression: Urinary tract infection Patient Disposition: Home Condition: Stable Instructions: Antibiotic Form, Urinary Tract Infection in Women (ED) Additional Instructions: take antibiotic as prescribed until gone. Drink at least 64 oz of water a day. See your doctor if not improving. Patient Language: Mongolian Prescriptions: New sulfamethoxazole-trimethoprim [Bactrim DS] 800-160 mg tablet 1 tablet PO Q12H 3 Days Qty: 6 0RF No Action omeprazole Follow-up/Referrals: UNKNOWN,DOCTOR [Primary Care Provider] Time of Disposition: 17:04
== END 2025-03-01 17:08 | disposition home or self-care (01) ==
PROVIDERS: Emergency Provider Nurse Practitioner Family
DX: N39.0 Urinary tract infection, site not specified (principal)
CPT/HCPCS: 81003; 87086; 87186; 99213; G0463